=== PATIENT | female | born 1960 | race Two or more races ===

== ENCOUNTER 2019-01-03 04:02 | Emergency (ER) | payer OTHER ==
[~2019-01-03] VITALS: Ht 167.6 cm; Wt 113.4 kg
[2019-01-03] MEDS ORDERED: NALBUPHINE HCL 10 MG/1ml INJECTION IM ONE (04:45)
[2019-01-03] MEDS ORDERED: ONDANSETRON HCL 4 MG/2 ML VIAL IM ONE (04:45)
[2019-01-03 08:16] VITALS: BP 143/73
[2019-01-03] MEDS ORDERED: cefTRIAXone SOD 1,000 MG VL IM ONE (08:45)
[2019-01-03] MEDS ORDERED: TETANUS-DIPTH-ACEL PERTUSSIS 0.5ML SYRG IM ONE (09:00)
== END 2019-01-03 09:13 | disposition home or self-care (01) ==
LOC: ER 04:02 → EDBD 04:02 → ER 09:13
DX: S50.812A Abrasion of left forearm, initial encounter (principal); S70.312A Abrasion, left thigh, initial encounter; S40.212A Abrasion of left shoulder, initial encounter; W55.03XA Scratched by cat, initial encounter; Y93.89 Activity, other specified; Y92.89 Other specified places as the place of occurrence of the external cause; Y99.8 Other external cause status
CPT/HCPCS: 90471; 90715; 96372; 99283; J0696; J2300; J2405